=== PATIENT | male | born 1960 | race Caucasian/White ===

== ENCOUNTER 2016-12-20 16:24 | Observation (INO) | payer MEDICARE ==
[2016-12-20 17:12] LABS: Bilirubin Negative (Negative); Blood, Urine Trace (Negative); Glucose, Urine (Dipstick) Negative (Negative); Ketone, Urine Negative (Negative); Nitrite Negative (Negative); Protein, Urine (Dipstick) Negative (Neg-Trace); Urobilinogen 0.2 mg/dL (0.2-1.0)
[2016-12-20 17:15] LABS: Bacteria/HPF None Seen HPF (None Seen); Hyaline Casts/LPF 0-3 HYALINE CAST LPF (0-3 Hyaline); RBC/HPF 0-3 HPF (0-3); Squamous Epithelial None Seen HPF (0-3); WBC/HPF None Seen HPF (0-3)
--- NOTE | 2016-12-20 17:16 | RAD ---
FRONTAL VIEW CHEST 12/20/16 COMPARISON: 08/04/16 INDICATION: Cough. FINDINGS: There is prominence of the cardiac silhouette and redemonstration of the left sided subclavian dual lead cardiac pacing device. Mild vascular prominence and interstitial prominence of the lungs presen t. No obvious effusion. No new consolidation. IMPRESSION: Stable chest. POS: [facility]
[2016-12-20 17:20] LABS: #Eosinphils 0.1 thou/uL (0.0-0.7); #Lymphocytes 0.6 thou/uL (1.20-3.40); #Monocytes 0.6 thou/uL (0.11-0.59); #Neutrophils 7.2 thou/uL (1.40-6.50); %Basophils 0.4 % (0.0-1.0); %Eosinophils 1.5 % (0.0-10.0); %Lymphocytes 7.5 % (21.0-51.0); %Monocytes 7.3 % (0.0-10.0); Hematocrit 42.6 % (42.0-52.0); Mean Platelet Volume 7.7 fL (7.4-10.4); Red Blood Cell (RBC) Count 4.19 mill/uL (4.70-6.10); White Blood Cell (WBC) Count 8.6 thou/uL (4.8-10.8)
[2016-12-20 17:47] LABS: ALT (SGPT) 14 U/L (8-55); AST (SGOT) 15 U/L (5-34); Alkaline Phosphatase 125 U/L (40-150); Anion Gap 13 mmol/L (10-20); BUN (Urea Nitrogen) 9 mg/dL (8.4-25.7); Bilirubin, Total 0.3 mg/dL (0.2-1.2); CK (CPK) 137 U/L (30-200); Calc. Creatinine Clearance 0 mL/min (70-130); Calcium 8.9 mg/dL (7.8-10.44); Carbon Dioxide 27 mmol/L (22-29); Chloride 102 mmol/L (98-107); Estimated GFR-MDRD 76; Globulin 3.2 g/dL (2.4-3.5)
[2016-12-20] MEDS ORDERED: Acetaminophen 500 MG TAB ONE (19:40)
[2016-12-20] MEDS ORDERED: Acetaminophen 325 MG TAB PO PRN ×3 (20:58→22:47)
[2016-12-20] MEDS ORDERED: Ondansetron ODT 4 MG TAB SL PRN (20:58)
[2016-12-20] MEDS ORDERED: Ondansetron HCl/PF 4 MG/2 ML Vial IVP PRN ×3 (20:58→22:47)
[2016-12-20] MEDS ORDERED: Ondansetron ODT 4 MG TAB PO PRN ×2 (22:47)
[2016-12-20] MEDS ORDERED: Lorazepam 2 MG/ML VIAL SLOW IVP PRN (22:47)
[2016-12-20 22:59] VITALS: BMI 37.3
--- NOTE | 2016-12-21 04:39 | HP ---
PRIMARY CARE PHYSICIAN: Dr. Rai at the [facility]. CHIEF COMPLAINT: Fever and \\\\"I believe I may have had a seizure\\\\". HISTORY OF PRESENT ILLNESS: Mr. Glaser is a pleasant 56-year-old gentleman who has a history of co ronary artery disease status post CABG. He also has a history of seizure disorder and blackout spel ls and hypertension. He was in his usual state of health until yesterday. He says he had fever mos t of the day and then he started feeling bad through half of the day and this carried on until today . He says he had a temperature of 100.4. He has had some sinus congestion off and on when asked an d said he has been blowing his nose \\\\"like crazy\\\\". It was significant for some clear nasal disch arge, no sore throat, however. He says that the way he wound up in the hospital is that his sister called an ambulance in order to have him checked out. He says he really did not want to go, but got talked into it. By the time he got to the emergency room it is reported that he had what sounds li ke an absence seizure and at that time his temperature was about 100.4 and he was reported to have g adriane hypoxic during the episode and this is the reason he is being admitted. Currently, he says he feels fine. He had some headache earlier, but currently does not have any headache. He says that he had expected to go home a few hours ago. He denies any sore throat or cough or congestion and no other symptoms. REVIEW OF SYSTEMS: CONSTITUTIONAL: He has subjective fever and was \\\\"feeling well\\\\" for a while, no night sweats, no weight loss. HEENT: He had some headache, but no neck pain, no visual changes, no sore throat, rhinorrhea or linda nopathy. PULMONARY: No hemoptysis, no cough, no wheezing. CARDIOVASCULAR: He denies any chest pain, no shortness of breath, no PND, no orthopnea. GASTROINTESTINAL: He does admit to having some loose stools over the past week, but not diarrhea, b ut he does complain of some increase in frequency of the stools. No vomiting. GENITOURINARY: No urinary frequency, hematuria, no hesitancy. NEUROLOGIC: No focal weakness, numbness, but he did have a seizure earlier today. He said he has n ot had a seizure for \\\\"a long time\\\\". SKIN/INTEGUMENT: No skin changes. No rash. PAST MEDICAL HISTORY: Syncope, history of seizures, bradycardia status post pacemaker, coronary art amanda disease, hypertension, and chronic systolic heart failure. PAST SURGICAL HISTORY: He has had a bypass surgery, 4-vessel, status post stent and an MRI compatib le pacemaker. ALLERGIES: No known drug allergies. FAMILY HISTORY: Heart disease in his father and hypertension in both parents. SOCIAL HISTORY: He is single. He occasionally smokes a pipe, denies any alcohol use. MEDICATIONS: Dilantin or phenytoin 500 mg at bedtime, pravastatin 40 mg at bedtime, losartan/hydroc hlorothiazide 100/25 once a day, isosorbide mononitrate 30 mg daily, famotidine 40 mg daily, carvedi lol 6.25 mg twice daily, and aspirin 325 mg daily. PHYSICAL EXAMINATION: GENERAL: He is alert and oriented. He appears to be in no acute distress. He is very nontoxic in appearance. VITAL SIGNS: Blood pressure was 139/71, heart rate 75, respiratory rate of 20, temperature is 99.3, O2 sat is 97% on room air. HEENT: His pupils are equal, round, and reactive. Extraocular muscles are intact. His sclerae are anicteric. His tympanic membranes, he had increase in wax in the drums, but the tympanic membranes were pearly mccormick. There was no fluid behind the drums. Throat: There is no erythema, no exudates . NECK: No adenopathy, no bruits. LUNGS: Clear. No wheezing, no rales. CARDIOVASCULAR: He has a normal S1, S2. I did not appreciate an S3 or S4. No murmurs, clicks or r ubs. ABDOMEN: Soft, it is nontender, nondistended. Positive for bowel sounds. No rebound or guarding. NEUROLOGIC: His cranial nerves II-XII were intact. He did not have any nuchal rigidity and muscle strength was intact. LABORATORY: White blood cell count 8.6, hemoglobin 14.2, hematocrit is 42.6, platelet count is 136. Sodium is 138, potassium 3.8, chloride is 102, CO2 is 27, BUN of 9, creatinine 1.01, glucose is 13 6. Urinalysis was essentially negative. ASSESSMENT AND PLAN: This is a 56-year-old gentleman who is being admitted after having a fever fol lowed by a seizure. The fever likely is a result of an upper respiratory infection such as a sinusi tis. He has had increase in nasal drainage over the past few days and feels congested. The seizure is likely as a result of the fever with a decrease in the seizure threshold from that. He appears to be very nontoxic, in fact was expecting to go home. He has essentially no complaints at this [facility]. We will put him on an antibiotic for the sinusitis such as amoxicillin. We will check his Markus tin level and restart Dilantin and hopefully if he is stable tomorrow by the afternoon with no signi ficant high fever or recurrence of seizures, then I suspect he can be discharged home. He sees Dr. Mejia for the seizures and can have close outpatient followup.
[2016-12-21 05:16] LABS: Anion Gap 13 mmol/L (10-20); BUN (Urea Nitrogen) 9 mg/dL (8.4-25.7); Calc. Creatinine Clearance 129 mL/min (70-130); Calcium 9.5 mg/dL (7.8-10.44); Carbon Dioxide 31 mmol/L (22-29); Chloride 102 mmol/L (98-107); Estimated GFR-MDRD 75
[2016-12-21] MEDS ORDERED: AMOXicillin 250 MG CAP PO SCH (09:00)
[2016-12-21] MEDS ORDERED: Aspirin 325 MG TAB PO SCH (09:00)
[2016-12-21] MEDS ORDERED: Losartan/Hydrochlorothiazide 100 mg/25 mg Tablet PO SCH (09:00)
[2016-12-21] MEDS ORDERED: Famotidine 20 MG TAB PO SCH (09:00)
[2016-12-21] MEDS ORDERED: Carvedilol 25 MG TAB PO SCH (09:00)
[2016-12-21] MEDS ORDERED: Cefdinir 300 MG CAP PO SCH ×2 (09:15→21:00)
[2016-12-21 11:50] VITALS: BP 97/54; TEMP 98.8
--- NOTE | 2016-12-21 12:28 | DIS ---
PRIMARY CARE PHYSICIAN: Dr. Pratima Rai DATE OF ADMISSION: 12/20/2016 DATE OF DISCHARGE: 12/21/2016 DISCHARGE DIAGNOSES: 1. Seizures, no recurrence. 2. Upper respiratory tract infection, started on antibiotics. CONDITION OF PATIENT AT THE TIME OF DISCHARGE: Stable. I assessed Mr. Glaser on the day of discharge. He denies any chest pain or shortness of breath. V ital signs are stable. S1 and S2 are heard, regular. Lungs clear to auscultation bilaterally. DISCHARGE MEDICATIONS: Aspirin 325 mg daily, Coreg 6.25 mg 2 times a day, famotidine 40 mg daily, i sosorbide mononitrate 30 mg daily, pravastatin 40 mg at bedtime, phenytoin dose increased to 200 mg 3 times a day, and Omnicef 300 mg 2 times a day, 13 more doses. HOSPITAL COURSE: Mr. Glaser is a pleasant 56-year-old gentleman who was admitted to [facility] on 12/20/2016 for seizures after an episode of fever due to suspected upper resp iratory tract infection. Chest x-ray did not reveal any evidence of pneumonia. Urine studies did n ot show evidence of a urinary tract infection. He has been started on cefdinir. His phenytoin level was borderline low normal at 10.0. Phenytoin dose has been increased to 200 mg 3 times a day. He is advised to follow up with his primary care provider and have his phenytoin lev el checked in 5 days' time. He did not have a recurrence of fever or seizure while in the hospital. Many thanks for allowing me to participate in your patient's care. Please feel free to contact me w ith any questions or concerns. During this hospitalization, he had a white count of 8600, hemoglobin 14.2 and platelet count 136,00 0 on 12/20/2016. On 12/21/2016, he had sodium of 142, potassium 3.6, creatinine 1.02. Urinalysis w as positive for trace amount of blood. DISCHARGE DISPOSITION: Home.
[2016-12-21] MEDS ORDERED: Pravastatin Sodium 40 MG TAB PO SCH (21:00)
== END 2016-12-21 13:05 | disposition home or self-care (01) ==
LOC: ERS 16:24 → 2SW 19:21
PROVIDERS: ADMIT Internal Medicine Infectious Disease; ATTEND Internal Medicine Infectious Disease
DX: J06.9 Acute upper respiratory infection, unspecified (principal); R56.9 Unspecified convulsions; I25.10 Atherosclerotic heart disease of native coronary artery without angina pectoris; I11.0 Hypertensive heart disease with heart failure; I50.9 Heart failure, unspecified; Z79.82 Long term (current) use of aspirin; Z79.899 Other long term (current) drug therapy; Z95.0 Presence of cardiac pacemaker; Z95.1 Presence of aortocoronary bypass graft; Z87.891 Personal history of nicotine dependence; Z82.49 Family history of ischemic heart disease and other diseases of the circulatory system
CPT/HCPCS: 71010; 80048; 80053; 80185; 82550; 85025; 87804 ×2; 93005; 96360; 96361; 99285; G0378; 36415; 81003; 81015

== ENCOUNTER 2017-03-26 04:42 | Inpatient (IN) | payer MEDICARE ==
[2017-03-26 05:45] LABS: #Eosinphils 0.1 thou/uL (0.0-0.7); #Lymphocytes 1.5 thou/uL (1.20-3.40); #Monocytes 0.5 thou/uL (0.11-0.59); %Basophils 0.1 % (0.0-1.0); %Eosinophils 2.2 % (0.0-10.0); %Monocytes 7.4 % (0.0-10.0); %Neutrophils 66.3 % (42.0-75.0); Mean Corpuscular HGB CONC 33.7 g/dL (32.0-36.0); Mean Corpuscular Hemoglobin 34.3 pg (27.0-31.0); Mean Platelet Volume 8.5 fL (7.4-10.4); Platelet Count 142 thou/uL (130-400); RBC Distribution Width 12.1 % (11.5-14.5); Red Blood Cell (RBC) Count 4.38 mill/uL (4.70-6.10); White Blood Cell (WBC) Count 6.1 thou/uL (4.8-10.8)
[2017-03-26 06:13] LABS: ALT (SGPT) 19 U/L (8-55); AST (SGOT) 18 U/L (5-34); Albumin 4.1 g/dL (3.5-5.0); Alkaline Phosphatase 115 U/L (40-150); Anion Gap 16 mmol/L (10-20); BUN (Urea Nitrogen) 12 mg/dL (8.4-25.7); Bilirubin, Total 0.4 mg/dL (0.2-1.2); CK (CPK) 110 U/L (30-200); Calc. Creatinine Clearance 0 mL/min (70-130); Calcium 9.3 mg/dL (7.8-10.44); Carbon Dioxide 29 mmol/L (22-29); Chloride 101 mmol/L (98-107); Estimated GFR-MDRD 89; Glucose 92 mg/dL (70-105); Magnesium 2.2 mg/dL (1.6-2.6); Potassium 3.7 mmol/L (3.5-5.1); Protein, Total 7.1 g/dL (6.0-8.3); Sodium 142 mmol/L (136-145)
[2017-03-26 06:15] LABS: Troponin I Less than 0.010 ng/mL (< 0.028)
[2017-03-26 06:20] LABS: Dilantin 34.4 ug/mL (10.0-20.0)
[2017-03-26 06:29] LABS: Acetaminophen Less than 6.0 mcg/mL (10.0-30.0); Alcohol Less than 10 mg/dL (Less than 10); Salicylate Less than 8.0 mg/dL (15.0-30.0)
--- NOTE | 2017-03-26 07:59 | RAD ---
PA AND LATERAL OF THE CHEST: INDICATION: Altered mental status. COMPARISON: Prior exam dated 03/25/17. FINDINGS: Dual-lead pacemaker is unchanged. Sternotomy changes are similar. Heart size is accentuated by exam technique. No focal consolidation, pleural effusion, or pneumothorax is evident. No acute osseous abnormality is evident. IMPRESSION: No acute cardiopulmonary abnormality. POS: [facility]
--- NOTE | 2017-03-26 08:29 | CT ---
PRELIMINARY REPORT/[facility]/EMERGENCY AFTER HOURS PROCEDURE: EXAM: CT Head Without Intravenous Contrast EXAM DATE/TIME: 03/26/2017 5:43 AM CLINICAL HISTORY: 57 years old, male; Signs and symptoms; Altered mental status/memory loss; Confusion or disorientatio n; Patient HX: AMS TECHNIQUE: Axial computed tomography images of the head/brain without intravenous contrast. COMPARISON: No relevant prior studies available. FINDINGS: Brain: Prominent sulci. Patchy hypodensity of the cerebral white matter which are nonspecific but lik se secondary to microangiopathic changes. No hemorrhage. Ventricles: The ventricular system may be mildly dilated out of proportion to the sulcal prominence. Clinical correlation is advised for possible normal pressure hydrocephalus. The ventricles are promin ent secondary to diffuse volume loss/atrophy. Bones/joints: Unremarkable. No acute fracture. Soft tissues: Unremarkable. Sinuses: Mild mucoperiosteal thickening of the paranasal sinuses. Mastoid air cells: Unremarkable as visualized. No mastoid effusion. IMPRESSION: The ventricular system may be mildly dilated out of proportion to the sulcal prominence. Clinical cor relation is advised for possible normal pressure hydrocephalus. Remainder of findings as described ab ove. Thank you for allowing us to participate in the care of your patient. Dictated and Authenticated by: Lovely Loyd MD 03/26/2017 6:09 AM Central Time ([place] & [place] M) CT BRAIN WITHOUT CONTRAST: FINAL REPORT Date: 03-26-17 Comparison: 08-09-15 History: Altered mental status, non-responsive. Cyanosis. FINDINGS: I agree with the preliminary [facility] report dictated by Dr. Loyd. The imaged paranasal sinuses and m astoid air cells are well aerated. There is no displaced calvarial fracture noted. As seen on the prior examination, the lateral ventricles and to a certain degree, the third ventricle are prominent. No significant cerebral volume loss is noted. There is no intracranial hemorrhage, mi dline shift of mass effect. IMPRESSION: Prominence of the ventricular system, a stable finding. In the proper clinical setting, this may sign juana normal pressure hydrocephalus. There is no intracranial hemorrhage noted. POS: [facility]
[2017-03-26] MEDS ORDERED: Senokot 8.6 MG TAB PO PRN (09:21)
[2017-03-26] MEDS ORDERED: Nitroglycerin 0.4 MG TAB (25 Tab Bottle) PO PRN (09:21)
[2017-03-26] MEDS ORDERED: Calcium Carbonate 500 MG ChewTAB PO PRN (09:21)
[2017-03-26] MEDS ORDERED: Ondansetron HCl/PF 4 MG/2 ML Vial IVP PRN (09:21)
[2017-03-26] MEDS ORDERED: Ondansetron ODT 4 MG TAB PO PRN (09:21)
[2017-03-26] MEDS ORDERED: Acetaminophen 325 MG TAB PO PRN (09:21)
[2017-03-26] MEDS ORDERED: Polyethylene Glycol 3350 17 GM Packet PO PRN (09:24)
[2017-03-26] MEDS ORDERED: Diabetic Tussin 200 MG/10 ML UDCUP PO PRN (09:24)
[2017-03-26] MEDS ORDERED: Loratadine 10 MG TAB PO PRN (09:24)
[2017-03-26] MEDS ORDERED: hydrALAZINE 20 MG/ML VIAL SLOW IVP PRN (09:24)
[2017-03-26] MEDS ORDERED: Eucerin (Mineral Oil/Petrolatum,White) 30 gm Jar TOP PRN (09:24)
[2017-03-26 09:50] LABS: Bilirubin Negative (Negative); Blood, Urine Negative (Negative); Clarity CLEAR (Clear); Glucose, Urine (Dipstick) Negative (Negative); Leukocyte Negative (Negative); Nitrite Negative (Negative); Protein, Urine (Dipstick) Negative (Neg-Trace); Specific Gravity, Urine 1.019 (1.002-1.036); Urobilinogen 0.2 mg/dL (0.2-1.0)
--- NOTE | 2017-03-26 09:50 | HP ---
DATE OF ADMISSION: 03/26/2017 PRIMARY CARE PHYSICIAN: Christie Alford. CHIEF COMPLAINT: Altered mentation. HISTORY OF PRESENT ILLNESS: Patient is a 57-year-old male with seizure disorder, currently on Dilant in 500 mg at bedtime, presented to the hospital with altered mentation. He was seen in the emergency room yesterday for dizziness and was discharged home. The patient woke up around 3 a.m. with dizziness and confusion. He had emotional lability with const ant crying, for which his sister called EMS. There was no seizure, head injury, double vision, blurr ing of vision, facial asymmetry, weakness, numbness of any extremities reported. No chest pain, palp itations, or diaphoresis reported. No fever or chills. In the emergency room, initial vital signs showed temperature 98, respirations 22, pulse rate of 63, blood pressure of 125/82 with O2 saturation 97% on room air. His Dilantin level was found to be in t he toxic range at 34.4. He was started on IV fluids. The patient subjectively feels a little bit be tter. His EKG showed paced rhythm. His pacemaker was interrogated and was negative for significant arrhythmia as per ER records. PAST MEDICAL HISTORY: 1. Seizure disorder, currently on 500 mg of Dilantin at bedtime. 2. Sinus node dysfunction, status post pacemaker. 3. Coronary artery disease, status post coronary artery bypass grafting and stent placement. 4. Hypertension. 5. Congestive heart failure in the past. PAST SURGICAL HISTORY: 1. Coronary artery bypass surgery. 2. Coronary stent placement. 3. MRI compatible pacemaker placement. ALLERGIES: No known drug allergies. CURRENT HOME MEDICATIONS: Patient does not remember any of his home medications. He takes Dilantin 500 mg at bedtime. SOCIAL HISTORY: He is single. He occasionally smokes pipe. Denies any alcohol or drug use. REVIEW OF SYSTEMS: The following complete review of systems was negative, unless otherwise mentioned in the HPI or below: Constitutional: Weight loss or gain, ability to conduct usual activities. Sk in: Rash, itching. Eyes: Double vision, pain. ENT/Mouth: Nose bleeding, neck stiffness, pain, te nderness. Cardiovascular: Palpitations, dyspnea on exertion, orthopnea. Respiratory: Shortness of breath, wheezing, cough, hemoptysis, fever, or night sweats. Gastrointestinal: Poor appetite, abdo vipul pain, heartburn, nausea, vomiting, constipation, or diarrhea. Genitourinary: Urgency, frequen cy, dysuria, nocturia. Musculoskeletal: Pain, swelling. Neurologic/Psychiatric: Anxiety, depressi on. Allergy/Immunologic: Skin rash, bleeding tendency. FAMILY HISTORY: Positive for heart disease in his father. PHYSICAL EXAMINATION: VITAL SIGNS: As discussed above. GENERAL: A 57-year-old male with intermittent confusion. Overall feeling better. HEENT: Head atraumatic, normocephalic. Sclerae are anicteric. Moist mucous membranes. No oral les ion. NECK: Supple, no JVD appreciated, no carotid bruit. LUNGS: Clear to auscultation bilaterally. HEART: S1, S2 present. Regular rate and rhythm. No murmurs, rubs, or gallops appreciated. ABDOMEN: Soft, nontender, bowel sounds present. EXTREMITIES: No edema or calf tenderness. NEUROLOGIC: There was horizontal nystagmus noted. Cranial nerves II-XII were essentially normal. P ower was 5/5 in all extremities. Tone was normal. Sensation to touch was normal bilaterally. PSYCHIATRY: As discussed above. SKIN: Warm and dry. LYMPH NODES: No palpable lymph nodes in the neck. PERIPHERAL VASCULAR: Radial pulses palpable bilaterally. MUSCULOSKELETAL: No joint swelling or tenderness. LABORATORY FINDINGS: 1. CBC showed WBC 6.1 with hemoglobin 15 and platelets 142. Chemistries showed sodium 142, potassiu m 3.7, chloride 101, bicarb 29, BUN 12, creatinine 0.88. 2. Troponins were normal. BNP 52. Prolactin 14, dilantin 34.4. 3. Tylenol, salicylate, and alcohol were negative. 4. EKG, by my review, as discussed above. 5. Chest x-ray, by my review, was negative for infiltrate. 6. CT scan of the brain was negative for acute findings. IMPRESSION: 1. Toxic metabolic encephalopathy secondary to Dilantin toxicity. 2. Coronary artery disease, status post stent placement and coronary artery bypass grafting. 3. Sinus node dysfunction, status post pacemaker. 4. History of seizure disorder on Dilantin 500 mg at bedtime, managed by his primary care physician. Patient has seen Dr. Mejia in the past. 5. Hypertension. 6. History of congestive heart failure in the past. PLAN: The patient will be monitored in the stroke unit. We will check Dilantin level every 4 hourly . Neurology will be consulted. We will consider changing Dilantin to other antiepileptic drug. We will get frequent neuro checks. Fall and seizure precautions. We will confirm home medications and start accordingly. Plan of care was discussed with the patient in detail. He stated understanding. We will continue IV hydration. The patient will require 2-3 days for stabilization.
[2017-03-26 10:02] LABS: Amphetamine Not Detected (NotDetected); Benzodiazepine Screen Not Detected (NotDetected); Cocaine Metabolite Screen Not Detected (NotDetected); Medtox Control Line Valid? VALID (VALID); Medtox Reader # READER 1; Methadone Not Detected (NotDetected); Methamphetamine Not Detected (NotDetected); Opiate Screen Not Detected (NotDetected); Oxycodone Screen Not Detected (NotDetected); Phencyclidine (PCP) Not Detected (NotDetected); THC/Cannabinoid Screen Not Detected (NotDetected); Tricyclic Screen Not Detected (NotDetected)
[2017-03-26 10:03] LABS: Barbiturates Screen Detected (NotDetected)
[2017-03-26 13:01] VITALS: BMI 38.6
[2017-03-26] MEDS: Sodium Chloride 0.9% 1,000 ML IV SCH ×2 (19:47→23:17)
[2017-03-26] MEDS: Famotidine 20 MG TAB PO SCH (20:04)
[2017-03-26] MEDS: Carvedilol 3.125 MG TAB PO SCH (20:04)
[2017-03-26] MEDS: Docusate 100 MG CAP PO SCH (20:04)
[2017-03-26] MEDS: Multivit, Therapeutic 1 TAB PO SCH (20:04)
[2017-03-26] MEDS: Enoxaparin Sodium 40 MG/0.4 ML SYRINGE SC SCH (20:04)
[2017-03-27 06:05] LABS: Anion Gap 9 mmol/L (10-20); BUN (Urea Nitrogen) 12 mg/dL (8.4-25.7); Calc. Creatinine Clearance 180 mL/min (70-130); Calcium 8.7 mg/dL (7.8-10.44); Carbon Dioxide 30 mmol/L (22-29); Chloride 106 mmol/L (98-107); Estimated GFR-MDRD Greater than 90; Glucose 81 mg/dL (70-105); Potassium 3.9 mmol/L (3.5-5.1); Sodium 141 mmol/L (136-145)
[2017-03-27] MEDS: Docusate 100 MG CAP PO SCH ×2 (09:43→20:08)
[2017-03-27] MEDS: Famotidine 20 MG TAB PO SCH ×2 (09:43→20:09)
[2017-03-27] MEDS: Folic Acid 1 MG TAB PO SCH (09:43)
[2017-03-27] MEDS: Carvedilol 3.125 MG TAB PO SCH ×2 (09:43→20:09)
--- NOTE | 2017-03-27 13:17 | PDOC.PN ---
- Subjective Encounter Start Date: 03/27/17 Encounter Start Time: 08:00 Leeanna is seen today, alert and oriented, having crying spells involuntarily, pt is concenred about it. No Seizures, Ni chest pain. - Objective Resuscitation Status: Resuscitation Status FULL:Full Resuscitation MAR Reviewed: Yes Vital Signs & Weight: Vital Signs (12 hours) Temp Pulse Pulse Pulse Resp BP BP 03/27/17 12:39 97.5 F L 69 20 03/27/17 11:15 65 81 155/82 H 163/92 H 03/27/17 08:35 98.4 F 60 20 03/27/17 08:00 97.7 F 60 16 03/27/17 04:10 97.7 F 70 16 BP Pulse Ox 03/27/17 12:39 155/94 H 94 L 03/27/17 11:15 03/27/17 08:35 137/86 95 03/27/17 08:00 03/27/17 04:10 128/84 96 Weight Weight 272 lb 3.2 oz I&O: 03/26/17 03/27/17 03/28/17 06:59 06:59 06:59 Intake Total 1483 Output Total 700 Balance 783 Result Diagrams: 03/26/17 05:26 03/27/17 04:57 Radiology Reviewed by me: Yes Phys Exam - Physical Examination HEENT: PERRLA, moist MMs Neck: no nodes, no JVD Respiratory: no wheezing, no rales Cardiovascular: RRR, no significant murmur Gastrointestinal: soft, non-tender Musculoskeletal: no edema, pulses present Neurological: non-focal, normal sensation Dx/Plan (1) Dilantin toxicity Code(s): T42.0X1A - POISONING BY HYDANTOIN DERIVATIVES, ACCIDENTAL, INIT Status: Acute - Plan cont current plan of care, plan discussed w/ family, PT/OT, criminal justice social worker, DVT proph w/lovenox Plan: * . -Acute Dilantin toxicity: Dilatin leevl, 2 now, Normal high is <20, will cotninue to Hold dilantin, [place] Monitor for Toxic symptoms of low Blood pressure and irritability which pt is experiencing as crying episode. will do prn on Alprazolam 0.125 -CABG/CAD: anat continue On Aspirin, restart his home meds -Pacemaker: continue to Monitor , pt is on telemetry. -Hypertension: restrat On home meds. Goal BP < 130/80, will d/c IV fluids, pt abvle to drink orally. -CHF: no evicdence of Exacerbation, will d/c IV fluids. - DVT prophylaxis SCD pT/OT evaluation. - Discharge Day Encounter end time: 08:30 Review of Systems - Review of Systems Constitutional: weakness, malaise. negative: fever, chills, sweats, other Eyes: negative: Pain, Vision Change, Conjunctivae Inflammation, Eyelid Inflammation, Redness, Other ENT: negative: Ear Pain, Ear Discharge, Nose Pain, Nose Discharge, Nose Congestion, Mouth Pain, Mouth Swelling, Throat Pain, Throat Swelling, Other Respiratory: negative: Cough, Dry, Shortness of Breath, Hemoptysis, SOB with Excertion, Pleuritic Pain, Sputum, Wheezing Cardiovascular: negative: chest pain, palpitations, orthopnea, paroxysmal nocturnal dyspnea, edema, light headedness, other Gastrointestinal: negative: Nausea, Vomiting, Abdominal Pain, Diarrhea, Constipation, Melena, Hematochezia, Other Genitourinary: negative: Dysuria, Frequency, Incontinence, Hematuria, Retention , Other Musculoskeletal: negative: Neck Pain, Shoulder Pain, Arm Pain, Back Pain, Hand Pain, Leg Pain, Foot Pain, Other Skin: negative: Rash, Lesions, Prem, Bruising, Other Neurological: Weakness. negative: Numbness, Incoordination, Change in Speech, Confusion, Seizures, Other - Medications/Allergies Allergies/Adverse Reactions: Allergies Allergy/AdvReac Type Severity Reaction Status Date / Time No Known Drug Allergies Allergy Verified 03/26/17 13:10 Medications: Current Medications Acetaminophen (Tylenol) 650 mg PO Q4H PRN PRN Reason: Headache/Fever or Pain Last Admin: 03/26/17 23:17 Dose: 650 mg Albuterol/Ipratropium (Duoneb) 3 ml NEB [id number] PRN PRN Reason: SOB &/or Wheezing Calcium Carbonate (Tums) 1,000 mg PO Q4H PRN PRN Reason: Heartburn or Indigestion Carvedilol (Coreg) 3.125 mg PO BID [facility] Last Admin: 03/27/17 09:43 Dose: 3.125 mg Docusate Sodium (Colace) 100 mg PO BID [facility] Last Admin: 03/27/17 09:43 Dose: 100 mg Enoxaparin Sodium (Lovenox) 40 mg SC 2100 [facility] Last Admin: 03/26/17 20:04 Dose: 40 mg Famotidine (Pepcid) 20 mg PO BID [facility] Last Admin: 03/27/17 09:43 Dose: 20 mg Folic Acid (Folvite) 1 mg PO DAILY [facility] Last Admin: 03/27/17 09:43 Dose: 1 mg Guaifenesin (Robitussin Sf) 200 mg PO Q4H PRN PRN Reason: Cough Hydralazine HCl (Apresoline) 10 mg SLOW IVP Q4H PRN PRN Reason: SBP Greater Than 180 Sodium Chloride (Normal Saline 0.9%) 1,000 mls @ 75 mls/hr IV .[id number] [facility] Last Admin: 03/26/17 23:17 Dose: 1,000 mls Loratadine (Claritin) 10 mg PO DAILYPRN PRN PRN Reason: Sinus Symptoms Mineral Oil/White Petrolatum (Eucerin Cream) 0 gm TOP BIDPRN PRN PRN Reason: Dry Skin Multivitamins (Theragran) 1 tab PO HS [facility] Last Admin: 03/26/17 20:04 Dose: 1 tab Nitroglycerin (Nitrostat) 0.4 mg PO Q5MIN PRN PRN Reason: Chest Pain Ondansetron HCl (Zofran Odt) 4 mg PO Q6H PRN PRN Reason: Nausea/Vomiting Last Admin: 03/26/17 23:20 Dose: 4 mg Ondansetron HCl (Zofran) 4 mg IVP Q6H PRN PRN Reason: Nausea/Vomiting Polyethylene Glycol (Miralax) 17 gm PO DAILY PRN PRN Reason: Constipation Senna (Senokot) 2 tab PO HSPRN PRN PRN Reason: Constipation Sodium Chloride (Flush - Normal Saline) 10 ml IVF PRN PRN PRN Reason: Saline Flush
[2017-03-27] MEDS ORDERED: ALPRAZolam 0.25 MG TAB PO PRN (13:26)
[2017-03-27] MEDS: Sodium Chloride 0.9% 1,000 ML IV SCH (14:58)
[2017-03-27] MEDS: Multivit, Therapeutic 1 TAB PO SCH (20:08)
[2017-03-27] MEDS: Enoxaparin Sodium 40 MG/0.4 ML SYRINGE SC SCH (20:10)
[2017-03-28 04:41] VITALS: TEMP 98.2
[2017-03-28 05:21] LABS: Anion Gap 12 mmol/L (10-20); BUN (Urea Nitrogen) 13 mg/dL (8.4-25.7); Calc. Creatinine Clearance 169 mL/min (70-130); Calcium 9.3 mg/dL (7.8-10.44); Carbon Dioxide 26 mmol/L (22-29); Chloride 105 mmol/L (98-107); Estimated GFR-MDRD Greater than 90; Glucose 78 mg/dL (70-105); Potassium 3.7 mmol/L (3.5-5.1); Sodium 139 mmol/L (136-145)
[2017-03-28] MEDS: Carvedilol 3.125 MG TAB PO SCH (08:40)
[2017-03-28] MEDS: Folic Acid 1 MG TAB PO SCH (08:40)
[2017-03-28] MEDS: Docusate 100 MG CAP PO SCH (08:40)
[2017-03-28] MEDS: Famotidine 20 MG TAB PO SCH (08:41)
[2017-03-28] MEDS ORDERED: Losartan/Hydrochlorothiazide 100 mg/25 mg Tablet PO SCH (09:00)
[2017-03-28] MEDS ORDERED: Aspirin 325 MG TAB PO SCH (09:00)
[2017-03-28 09:34] VITALS: BP 111/66
--- NOTE | 2017-03-28 12:46 | DIS ---
DATE OF ADMISSION: 03/26/2017 DATE OF DISCHARGE: 03/28/2017 ADMITTING DIAGNOSIS: Acute toxic encephalopathy. DISCHARGE DIAGNOSIS: Acute toxic encephalopathy. SECONDARY DIAGNOSES: 1. Dilantin toxicity. 2. History of seizure disorder. 3. History of coronary artery disease. 4. History of hypertension. 5. History of congestive heart failure. CONSULTANTS: Involved in his care is Dr. Mejia. INVESTIGATIONS DURING THIS ADMISSION: A CT of the head was unremarkable for any intracranial hemorrh age. HISTORY OF PRESENT ILLNESS AND HOSPITAL COURSE: In brief, this is a 57-year-old white male with a kn own history of seizure disorder, who was usually on 400 mg of Dilantin, under the care of Dr. Mejia , but has lost to followup with him and was only following with his primary physician. So, his prima ry care physician increased the dose to Dilantin 500 mg at bedtime and this was not followed up. So, the patient ended up feeling very dizzy and confused with emotional lability and constant crying and the patient presented to the EMS. Patient was admitted and had a thorough evaluation for a stroke a nd a CT head was negative and the patient was closely monitored and was noted to have elevated Dilant in levels in 30s. So, patient was started on IV fluids and his blood pressures remained stable. His Dilantin level was progressively coming down; on the day of the discharge, it was 24.7. So, discuss ed with Dr. Mejia if the patient could go home and his Dilantin dose should be reduced to 400 mg an d he needs to be restarted in 2 days. Repeat Dilantin levels will be checked with Dr. Mejia's offi ce after 1 week. The patient is stable. He continues to have crying episodes, for which he was bein g given Xanax for these episodes. Most likely these episodes could be related to the elevated Dilant in levels, which would be closely monitored by Dr. Mejia. The patient is discharged home in stable condition. PHYSICAL EXAMINATION: On the day of discharge, VITAL SIGNS: Blood pressure is 111/66, heart rate is 63, respiratory rate is 20, saturation is 98%. GENERAL: The patient is moderately built and moderately nourished. Does note appear to be in any ac [place] distress. CARDIOVASCULAR: S1, S2 normal. No murmurs, no rubs, no gallops. LUNGS: Bilateral air entry was equal. No wheezing, no crackles. ABDOMEN: Soft, nontender, no guarding, no rebound tenderness. Bowel sounds normal. MUSCULOSKELETAL: No calf tenderness or pedal edema. No joint tenderness and no joint swelling. DISCHARGE MEDICATIONS: 1. Coreg 6.25 msg b.i.d. 2. Pravastatin 40 mg p.o. at bedtime. 3. Aspirin 325 p.o. daily. 4. Isosorbide 30 mg p.o. daily. 5. Losartan/hydrochlorothiazide 1 tablet p.o. daily. 6. The patient is sent home on Dilantin 400 mg p.o. at bedtime. DISCHARGE INSTRUCTIONS: Continue activity as tolerated. Advised to follow up with the primary care physician in 1 week. Advised to follow up with Dr. Stanley Mejia in 1 week, and will be rechecking hi s Dilantin levels at that time. I reassured the patient that his anxiety symptoms are related to the elevated Dilantin levels and should hopefully come down. Advised the patient to return to the ER if the patient develops any worsening headache, dizziness, or any vomiting. I spent 35 minutes with this patient on the day of discharge.
[2017-03-28] MEDS ORDERED: ALPRAZolam 0.25 MG TAB PO SCH (13:00)
--- NOTE | 2017-04-14 18:03 | EKG ---
Test Reason : Blood Pressure : / mmHG Vent. Rate : 060 BPM Atrial Rate : 060 BPM P-R Int : 122 ms QRS Dur : 080 ms QT Int : 404 ms P-R-T Axes : 000 -17 003 degrees QTc Int : 404 ms Electronic atrial pacemaker Inferior infarct , age undetermined Cannot rule out Anterior infarct , age undetermined Abnormal ECG No changes from MAR-2017 Confirmed by SILVA MORENO D.O. ([id number]), editorial director DILIA CASE ([id number]) on 04/14/2017 6:02:30 PM Referred By: Confirmed By:SILVA MORENO D.O.
== END 2017-03-28 13:24 | disposition home or self-care (01) | DRG 917 ==
LOC: ERS 04:42 → ERHOLD 06:50 → 2SW 12:54
PROVIDERS: ADMIT Emergency Medicine; ATTEND Emergency Medicine
DX: T42.0X1A Poisoning by hydantoin derivatives, accidental (unintentional), initial encounter (principal); G92 Toxic encephalopathy; G40.909 Epilepsy, unspecified, not intractable, without status epilepticus; Z95.0 Presence of cardiac pacemaker; I25.10 Atherosclerotic heart disease of native coronary artery without angina pectoris; Z95.1 Presence of aortocoronary bypass graft; Z95.5 Presence of coronary angioplasty implant and graft; T42.0X5A Adverse effect of hydantoin derivatives, initial encounter; F41.9 Anxiety disorder, unspecified; I11.0 Hypertensive heart disease with heart failure; I50.9 Heart failure, unspecified
CPT/HCPCS: 36415; 70450; 71045; 71046; 80048; 80053; 80185; 80306; 80307; 81003; 82550; 82553; 83735; 83880; 84100; 84146; 84484; 85025; 93005; 94760; 96360; 96361; G8978-GP-CJ; G8979-GP-CJ; G8980-GP-CJ; J1650; Q0162